=== PATIENT | male | born 1995 | race Hispanic/Latino ===

== ENCOUNTER 2020-04-02 10:57 | Emergency (ER) | payer BC, SELFPAY ==
[2020-04-02 11:33] LABS: #Basophils 0.1 thou/uL (0.0-0.2); #Eosinphils 0.1 thou/uL (0.0-0.7); #Lymphocytes 3.2 thou/uL (1.20-3.40); #Monocytes 0.6 thou/uL (0.11-0.59); #Neutrophils 2.5 thou/uL (1.40-6.50); %Basophils 1.1 % (0.0-1.0); %Eosinophils 2.1 % (0.0-10.0); %Lymphocytes 49.1 % (21.0-51.0); %Monocytes 8.9 % (0.0-10.0); %Neutrophils 38.8 % (42.0-75.0); Hemoglobin 16.8 g/dL (14.0-18.0); Mean Corpuscular HGB CONC 33.8 g/dL (32.0-36.0); Mean Corpuscular Hemoglobin 28.8 pg (27.0-31.0); Mean Corpuscular Volume 85.1 fL (78.0-98.0); Mean Platelet Volume 6.6 fL (7.4-10.4); Platelet Count 250 thou/uL (130-400); RBC Distribution Width 11.9 % (11.5-14.5); Red Blood Cell (RBC) Count 5.83 mill/uL (4.70-6.10); White Blood Cell (WBC) Count 6.6 thou/uL (4.8-10.8)
[2020-04-02 11:50] LABS: ALT (SGPT) 88 U/L (8-55); AST (SGOT) 37 U/L (5-34); Albumin 4.6 g/dL (3.5-5.0); Alkaline Phosphatase 109 U/L (40-110); Anion Gap 16 mmol/L (10-20); BUN (Urea Nitrogen) 16 mg/dL (8.9-20.6); Bilirubin, Total 0.3 mg/dL (0.2-1.2); Calc. Creatinine Clearance 0 mL/min (70-130); Calcium 9.4 mg/dL (7.8-10.44); Carbon Dioxide 22 mmol/L (22-29); Chloride 104 mmol/L (98-107); Globulin 3.3 g/dL (2.4-3.5); Glucose 99 mg/dL (70-105); Lipase 14 U/L (8-78); Potassium 4.2 mmol/L (3.5-5.1); Protein, Total 7.9 g/dL (6.0-8.3); Sodium 138 mmol/L (136-145)
== END 2020-04-02 11:56 | disposition home or self-care (01) ==
LOC: NAV ERS 10:57
DX: R10.11 Right upper quadrant pain (principal); R10.32 Left lower quadrant pain; F17.210 Nicotine dependence, cigarettes, uncomplicated
CPT/HCPCS: 80053; 83690; 85025; 99284

== ENCOUNTER 2021-12-21 17:58 | Emergency (ER) | payer OTHER, SELFPAY ==
[2021-12-21] MEDS ORDERED: Ibuprofen 200 MG TAB ONE (18:42)
== END 2021-12-21 20:08 | disposition home or self-care (01) ==
LOC: NAV ERS 17:58
DX: S89.91XA Unspecified injury of right lower leg, initial encounter (principal); M25.062 Hemarthrosis, left knee; F17.210 Nicotine dependence, cigarettes, uncomplicated; X58.XXXA Exposure to other specified factors, initial encounter; Y93.39 Activity, other involving climbing, rappelling and jumping off

== ENCOUNTER 2022-02-26 23:17 | Emergency (ER) | payer BC, OTHER, SELFPAY | END 2022-02-27 00:15 | disposition home or self-care (01) | LOC: NAV ERS 23:17 | DX: R00.0 Tachycardia, unspecified (principal); F17.210 Nicotine dependence, cigarettes, uncomplicated | CPT/HCPCS: 99283 ==

== ENCOUNTER 2022-05-25 14:52 | Emergency (ER) | payer BC, OTHER ==
[2022-05-25] MEDS ORDERED: Proparacaine 0.5% Opth 15 ML BOT ONE (14:59)
[2022-05-25] MEDS ORDERED: Fluorescein Opthalmic Strip ONE ×2 (14:59→15:47)
== END 2022-05-25 16:12 | disposition home or self-care (01) ==
LOC: NAV ERS 14:52
DX: T15.02XA Foreign body in cornea, left eye, initial encounter (principal); F17.210 Nicotine dependence, cigarettes, uncomplicated; W26.8XXA Contact with other sharp object(s), not elsewhere classified, initial encounter
CPT/HCPCS: 65220